=== PATIENT | female | born 1995 ===

== ENCOUNTER 2019-09-14 01:15 | Emergency (ER) | payer OTHER ==
[~2019-09-14] VITALS: Ht 167.6 cm; Wt 81.8 kg
[2019-09-14 01:15] VITALS: TEMP 98.2
[2019-09-14 06:00] VITALS: BP 92/57; PULSE 68
== END 2019-09-14 06:00 | disposition home or self-care (01) ==
LOC: COL.ER 01:15
DX: S00.93XA Contusion of unspecified part of head, initial encounter (principal); F10.129 Alcohol abuse with intoxication, unspecified; Y90.7 Blood alcohol level of 200-239 mg/100 ml; W19.XXXA Unspecified fall, initial encounter; W22.8XXA Striking against or struck by other objects, initial encounter